=== PATIENT | male | born 1950 | race Caucasian/White ===

== ENCOUNTER 2018-12-07 07:22 | Day surgery (SDC) | payer MEDICARE, OTHER ==
[2018-12-07 08:57] LABS: ADD MAN DIFF? NO
[2018-12-07 09:01] LABS: WHITE BLOOD COUNT 6.4 10^3/ul (4.8-10.8)
[2018-12-07 09:01] LABS: BASOPHILS % 0.5 % (0.0-2.0); EOSINOPHILS # 0.1 10^3/ul (0.0-0.5); EOSINOPHILS % 1.1 % (0.0-7.0); HEMATOCRIT 38.6 % (42.0-52.0); LYMPHOCYTES # 1.2 10^3/ul (0.8-2.9); LYMPHOCYTES % 19.2 % (15.0-51.0); MEAN CORPUSCULAR HEMOGLOBIN 29.4 pg (29.0-33.0); MEAN CORPUSCULAR HGB CONC 33.7 g/dl (32.0-37.0); MEAN CORPUSCULAR VOLUME 87.3 fl (82.0-101.0); MEAN PLATELET VOLUME 8.5 fl (7.4-10.4); MONOCYTE # 0.5 10^3/ul (0.3-0.9); MONOCYTES % 8.5 % (0.0-11.0); NEUTROPHIL # 4.5 10^3/ul (1.6-7.5); NEUTROPHILS % 70.4 % (39.0-77.0); PLATELET COUNT 161 10^3/UL (140-415); RED BLOOD COUNT 4.42 10^6/ul (4.70-6.10); RED CELL DISTRIBUTION WIDTH 12.8 % (11.5-14.5)
[2018-12-07] MEDS: SOD CHLORIDE 0.45% 1,000 ML IV (09:08)
[2018-12-07] MEDS: FAMOTIDINE 20 MG TAB PO (09:10)
[2018-12-07] MEDS: DIPHENHYDRAMINE 50 MG CAP PO (09:10)
[2018-12-07] MEDS: DIAZEPAM 5 MG TAB PO (09:10)
[2018-12-07 09:20] LABS: ANION GAP 6 (5-13); BLOOD UREA NITROGEN 16 mg/dl (7-20); CALCIUM 9.5 mg/dl (8.4-10.2); CARBON DIOXIDE 31 mmol/L (21-31); CHLORIDE 102 mmol/L (97-110); CHOL/HDL RATIO 3.7 RATIO; CHOLESTEROL 141 mg/dl (100-200); CREATININE 0.83 mg/dl (0.61-1.24); Estimated GFR > 60 mL/min (>60); GLUCOSE 104 mg/dl (70-220); HDL CHOLESTEROL 38 mg/dl (30-78); LDL CHOLESTEROL,CALCULATED 76 mg/dl; POTASSIUM 4.4 mmol/L (3.5-5.1); SODIUM 139 mmol/L (135-144); TRIGLYCERIDES 137 mg/dl (0-149)
[2018-12-07 09:22] LABS: INR 0.92; PROTIME 12.5 Sec (11.9-14.9)
[2018-12-07 09:23] LABS: PARTIAL THROMBOPLASTIN TIME 29.7 Sec (23.0-35.0)
[2018-12-07] MEDS ORDERED: LIDOCAINE 1% (MDV) 20 ML INJ (09:37)
[2018-12-07] MEDS ORDERED: IODIXANOL LOCM 100 ML BTL (09:37)
[2018-12-07] MEDS ORDERED: FENTAnyl 50 MCG/ML VIAL (09:37)
[2018-12-07] MEDS ORDERED: MIDAZOLAM 1 MG/ML 2 ML INJ (09:37)
[2018-12-07] MEDS ORDERED: ONDANSETRON 4 MG INJ IV (11:30)
[2018-12-07] MEDS ORDERED: ACETAMINOPHEN 325 MG TAB PO (11:30)
[2018-12-07] MEDS ORDERED: AL HYDROX/MG HYDROX/SIMETH 30 ML CUP PO (11:30)
[2018-12-07] MEDS: SOD CHLORIDE 0.9% 1,000 ML IV (12:32)
[2018-12-07] MEDS: morphine 2 MG INJ IV (12:33)
== END 2018-12-07 17:46 | disposition home or self-care (01) ==
LOC: SDS 07:22
DX: I73.9 Peripheral vascular disease, unspecified (principal); I10 Essential (primary) hypertension; I77.1 Stricture of artery; Z95.810 Presence of automatic (implantable) cardiac defibrillator; I42.9 Cardiomyopathy, unspecified
CPT/HCPCS: 36245; 71045; 75630; 75716; 80048; 80061; 85025; 85610; 85730; 93005

== ENCOUNTER 2018-12-20 17:14 | Inpatient (IN) | payer MEDICARE, OTHER ==
[2018-12-20] MEDS: ONDANSETRON 4 MG INJ IV (18:12)
[2018-12-20] MEDS: morphine 4 MG/ML VIAL IV (18:12)
[2018-12-20 18:13] LABS: ADD MAN DIFF? NO
[2018-12-20 18:18] LABS: WHITE BLOOD COUNT 8.8 10^3/ul (4.8-10.8)
[2018-12-20 18:18] LABS: BASOPHILS % 0.1 % (0.0-2.0); HEMATOCRIT 38.2 % (42.0-52.0); HEMOGLOBIN 13.3 g/dl (14.0-18.0); LYMPHOCYTES # 0.8 10^3/ul (0.8-2.9); LYMPHOCYTES % 8.6 % (15.0-51.0); MEAN CORPUSCULAR HEMOGLOBIN 30.1 pg (29.0-33.0); MEAN CORPUSCULAR HGB CONC 34.8 g/dl (32.0-37.0); MEAN CORPUSCULAR VOLUME 86.4 fl (82.0-101.0); MEAN PLATELET VOLUME 8.1 fl (7.4-10.4); MONOCYTE # 0.3 10^3/ul (0.3-0.9); MONOCYTES % 3.1 % (0.0-11.0); NEUTROPHIL # 7.7 10^3/ul (1.6-7.5); NEUTROPHILS % 87.9 % (39.0-77.0); PLATELET COUNT 220 10^3/UL (140-415); RED BLOOD COUNT 4.42 10^6/ul (4.70-6.10); RED CELL DISTRIBUTION WIDTH 12.9 % (11.5-14.5)
[2018-12-20 18:38] LABS: ALANINE AMINOTRANSFERASE 27 IU/L (13-69); ALBUMIN 4.2 g/dl (3.3-4.9); ALBUMIN/GLOBULIN RATIO 1.27; ALKALINE PHOSPHATASE 45 IU/L (42-121); ANION GAP 11 (5-13); ASPARTATE AMINO TRANSFERASE 20 IU/L (15-46); BILIRUBIN,INDIRECT 0.6 mg/dl (0-1.1); BILIRUBIN,TOTAL 0.6 mg/dl (0.2-1.3); BLOOD UREA NITROGEN 11 mg/dl (7-20); CALCIUM 9.7 mg/dl (8.4-10.2); CARBON DIOXIDE 26 mmol/L (21-31); CHLORIDE 104 mmol/L (97-110); CREATININE 0.68 mg/dl (0.61-1.24); Estimated GFR > 60 mL/min (>60); GLUCOSE 179 mg/dl (70-220); LIPASE 39 U/L (23-300); POTASSIUM 3.8 mmol/L (3.5-5.1); PROTIME 13.3 Sec (11.9-14.9); SODIUM 141 mmol/L (135-144); TOTAL PROTEIN 7.5 g/dl (6.1-8.1)
[2018-12-20 18:39] LABS: PARTIAL THROMBOPLASTIN TIME 31.1 Sec (23.0-35.0)
[2018-12-20 18:50] LABS: TROPONIN-I 0.015 ng/ml (0.000-0.120)
[2018-12-20] MEDS ORDERED: ONDANSETRON 4 MG INJ IV (19:00)
[2018-12-20] MEDS ORDERED: ACETAMINOPHEN 325 MG TAB PO ×2 (19:00→22:30)
[2018-12-20] MEDS: TAMSULOSIN (SR) 0.4 MG CAP PO (20:42)
[2018-12-20] MEDS: LISINOPRIL 10 MG TAB PO (20:42)
[2018-12-20] MEDS: ATORVASTATIN 20 MG TAB PO (20:42)
[2018-12-20] MEDS: CILOSTAZOL 100 MG TAB PO (20:42)
[2018-12-20] MEDS ORDERED: ZOLPIDEM 5 MG TAB PO (22:30)
[2018-12-20] MEDS: traMADol 50 MG TAB PO (23:08)
[2018-12-21] MEDS: traMADol 50 MG TAB PO ×2 (03:59→20:14)
[2018-12-21] MEDS: DEXTROSE 5%-0.9% NACL 1,000 ML IV ×2 (06:22→19:06)
[2018-12-21] MEDS: LEVOTHYROXINE 50 MCG TAB PO (06:47)
[2018-12-21] MEDS: PANTOPRAZOLE (EC) 40 MG TAB PO (07:20)
[2018-12-21] MEDS: morphine 2 MG INJ IV ×2 (07:52→21:18)
[2018-12-21] MEDS: ASPIRIN (EC) 81 MG TAB PO (08:00)
[2018-12-21] MEDS: CHOLECALCIFEROL 1,000 UNIT TAB PO (08:00)
[2018-12-21] MEDS: CILOSTAZOL 100 MG TAB PO ×2 (08:00→21:00)
[2018-12-21] MEDS: LISINOPRIL 10 MG TAB PO ×2 (08:01→20:14)
[2018-12-21] MEDS ORDERED: HEPARIN 1000 UNITS/ML 10 ML INJ ×2 (11:04→13:00)
[2018-12-21] MEDS ORDERED: THROMBIN 5000 UNIT (RECOTHROM) VIAL ×2 (11:04→14:36)
[2018-12-21] MEDS ORDERED: GELATIN SIZE 100 SPONGE ×2 (11:04→14:36)
[2018-12-21] MEDS ORDERED: PROPOFOL 20 ML (11:57)
[2018-12-21] MEDS ORDERED: SUCCINYLCHOLINE CHLORIDE 100 MG/5 ML SYG IV (11:57)
[2018-12-21] MEDS ORDERED: LIDOCAINE 2% (SDV) 5 ML INJ (11:57)
[2018-12-21] MEDS ORDERED: GLYCOPYRROLATE 0.4 MG INJ ×2 (11:57→14:46)
[2018-12-21] MEDS ORDERED: NEOSTIGMINE 3 MG/3 ML SYRINGE (11:57)
[2018-12-21] MEDS ORDERED: ROCURONIUM 50 MG INJ ×2 (11:57→12:31)
[2018-12-21] MEDS ORDERED: EPHEDrine 25 MG/5 ML SYG (11:57)
[2018-12-21] MEDS ORDERED: HYDROCORTISONE 100 MG INJ (12:29)
[2018-12-21] MEDS ORDERED: MEPERIDINE 100 MG INJ (12:42)
[2018-12-21] MEDS ORDERED: IOHEXOL 300MG/ML 30 ML BTL ×3 (13:28→14:07)
[2018-12-21] MEDS ORDERED: PROTAMINE 250 MG INJ (14:33)
[2018-12-21] MEDS ORDERED: METOCLOPRAMIDE 10 MG INJ IV (15:00)
[2018-12-21] MEDS ORDERED: hydrALAzine 20 MG INJ IV (15:00)
[2018-12-21] MEDS ORDERED: FENTAnyl 50 MCG/ML VIAL IV ×2 (15:00)
[2018-12-21] MEDS ORDERED: ONDANSETRON 4 MG INJ IV (15:00)
[2018-12-21] MEDS ORDERED: LABETALOL HCL 20MG INJ IV (15:00)
[2018-12-21] MEDS ORDERED: HYDROmorphONE 0.5 MG/0.5 ML SYG IV ×3 (15:00)
[2018-12-21] MEDS ORDERED: EPHEDrine 25 MG/5 ML SYG IV (15:00)
[2018-12-21] MEDS: CLOPIDOGREL 75 MG TAB PO (15:30)
[2018-12-21] MEDS: FENTAnyl 50 MCG/ML VIAL IV (15:56)
[2018-12-21] MEDS ORDERED: niCARdipine-NS 0.1MG/ML DRIP 200 ML IV (19:00)
[2018-12-21] MEDS: TAMSULOSIN (SR) 0.4 MG CAP PO (20:14)
[2018-12-21] MEDS: ATORVASTATIN 20 MG TAB PO (20:14)
[2018-12-22] MEDS: morphine 2 MG INJ IV ×3 (01:55→13:55)
[2018-12-22 05:14] LABS: ADD MAN DIFF? NO
[2018-12-22 05:21] LABS: BASOPHILS % 0.2 % (0.0-2.0); EOSINOPHILS % 0.1 % (0.0-7.0); HEMOGLOBIN 9.8 g/dl (14.0-18.0); LYMPHOCYTES # 1.1 10^3/ul (0.8-2.9); LYMPHOCYTES % 11.7 % (15.0-51.0); MEAN CORPUSCULAR HEMOGLOBIN 29.3 pg (29.0-33.0); MEAN CORPUSCULAR HGB CONC 33.8 g/dl (32.0-37.0); MEAN CORPUSCULAR VOLUME 86.8 fl (82.0-101.0); MEAN PLATELET VOLUME 8.8 fl (7.4-10.4); MONOCYTE # 0.9 10^3/ul (0.3-0.9); MONOCYTES % 9.5 % (0.0-11.0); NEUTROPHIL # 7.3 10^3/ul (1.6-7.5); NEUTROPHILS % 78.3 % (39.0-77.0); PLATELET COUNT 175 10^3/UL (140-415); RED BLOOD COUNT 3.34 10^6/ul (4.70-6.10); RED CELL DISTRIBUTION WIDTH 13.1 % (11.5-14.5)
[2018-12-22 05:21] LABS: WHITE BLOOD COUNT 9.3 10^3/ul (4.8-10.8)
[2018-12-22 05:51] LABS: ANION GAP 4 (5-13); BLOOD UREA NITROGEN 15 mg/dl (7-20); CALCIUM 8.6 mg/dl (8.4-10.2); CARBON DIOXIDE 27 mmol/L (21-31); CHLORIDE 106 mmol/L (97-110); CREATININE 0.63 mg/dl (0.61-1.24); Estimated GFR > 60 mL/min (>60); GLUCOSE 118 mg/dl (70-220); POTASSIUM 3.7 mmol/L (3.5-5.1); SODIUM 137 mmol/L (135-144)
[2018-12-22] MEDS: LEVOTHYROXINE 50 MCG TAB PO (06:36)
[2018-12-22] MEDS: PANTOPRAZOLE (EC) 40 MG TAB PO (06:36)
[2018-12-22] MEDS: CILOSTAZOL 100 MG TAB PO (08:00)
[2018-12-22] MEDS: LISINOPRIL 10 MG TAB PO (08:00)
[2018-12-22] MEDS: CHOLECALCIFEROL 1,000 UNIT TAB PO (08:00)
[2018-12-22] MEDS: ASPIRIN (EC) 81 MG TAB PO (08:01)
[2018-12-22] MEDS: CLOPIDOGREL 75 MG TAB PO (08:01)
[2018-12-22] MEDS: APIXABAN 5 MG TABLET PO (09:22)
[2018-12-22] MEDS: traMADol 50 MG TAB PO ×2 (11:26→16:49)
== END 2018-12-22 19:00 | disposition home or self-care (01) | DRG 254 ==
LOC: ICU 12-21 15:31 → E/R 17:14 → MS1 18:54
PROC: 047J3ZZ Dilation of Left External Iliac Artery, Percutaneous Approach (ICD-10-PCS; principal; 2018-12-21)
PROC: 04CL0ZZ Extirpation of Matter from Left Femoral Artery, Open Approach (ICD-10-PCS; 2018-12-21)
PROC: 04UJ0KZ Supplement Left External Iliac Artery with Nonautologous Tissue Substitute, Open Approach (ICD-10-PCS; 2018-12-21)
PROC: 04UL0KZ Supplement Left Femoral Artery with Nonautologous Tissue Substitute, Open Approach (ICD-10-PCS; 2018-12-21)
PROC: 04CK0ZZ Extirpation of Matter from Right Femoral Artery, Open Approach (ICD-10-PCS; 2018-12-21)
PROC: B40GYZZ Plain Radiography of Left Lower Extremity Arteries using Other Contrast (ICD-10-PCS; 2018-12-21)
PROC: B40FYZZ Plain Radiography of Right Lower Extremity Arteries using Other Contrast (ICD-10-PCS; 2018-12-21)
DX: T82.868A Thrombosis due to vascular prosthetic devices, implants and grafts, initial encounter (principal); T82.818A Embolism due to vascular prosthetic devices, implants and grafts, initial encounter; I70.723 Atherosclerosis of other type of bypass graft(s) of the extremities with rest pain, bilateral legs; I25.10 Atherosclerotic heart disease of native coronary artery without angina pectoris; E78.5 Hyperlipidemia, unspecified; I10 Essential (primary) hypertension; N40.0 Benign prostatic hyperplasia without lower urinary tract symptoms; E03.9 Hypothyroidism, unspecified; Z79.82 Long term (current) use of aspirin; Z87.891 Personal history of nicotine dependence; Z95.0 Presence of cardiac pacemaker; Z95.1 Presence of aortocoronary bypass graft; Y83.2 Surgical operation with anastomosis, bypass or graft as the cause of abnormal reaction of the patient, or of later complication, without mention of misadventure at the time of the procedure
CPT/HCPCS: 36415; 71045; 80048; 80053; 83690; 84484; 85025; 85610; 85730; 93005; 96374; 96375; 97162; 99285-25